=== PATIENT | female | born 2000 | race African-American/Black ===

== ENCOUNTER 2023-11-24 08:27 | Emergency (ER) | payer OTHER ==
[~2023-11-24] VITALS: Ht 152.4 cm; Wt 59.0 kg
[2023-11-24 08:40] VITALS: PULSE 73; RESP 16; TEMP 98.6
== END 2023-11-24 09:30 | disposition home or self-care (01) ==
LOC: FSED 08:39
DX: J06.9 Acute upper respiratory infection, unspecified (principal)
CPT/HCPCS: 0223U; 87400; 87420; 99282